=== PATIENT | female | born 1995 | race Caucasian/White ===

== ENCOUNTER 2020-06-23 08:09 | Emergency (ER) | payer OTHER, SELFPAY ==
[2020-06-23 08:17] VITALS: BP 134/87; PULSE 118; RESP 20; TEMP 36.9; O2SAT 99
--- NOTE | 2020-06-23 08:33 | ED.NAVMDI ---
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 Patient states she has a 2-day history of frontal headache followed by vomiting x2-3, then followed by definite diarrhea x1-2. No fever, loss of taste/smell, CP, cough, S OB, abdominal pain, sick contacts; denies FMH migraine, speech?visual changes, lateralizing weakness, numbness/weakness, photophobia/blurred vision, toothache. Symptoms are mild, worse eating ; she has had a prior cholecystectomy, and desires work release Related Data Home Medications Medication Instructions Recorded Confirmed Abilify 06/23/20 Celexa 06/23/20 Zofran 06/23/20 Allergies Allergy/AdvReac Type Severity Reaction Status Date / Time amoxicillin Allergy Mild RASH Unverified 12/08/17 16:12 Review of Systems Review of Systems: Narrative: General/Constitutional: No weight loss,fever Eyes: N0: Redness,discharge Ears/Nose/Throat: No: Epistaxis,ear discharge Respiratory: Denies: Hemoptysis Gastrointestinal: REPORTS vomiting, no bleeding-rectal Skin: No Lumps, eruption Neurologic: No Focal Weakness,Sz Hematologic: Denies: Petechiae/Purpura Psychiatric: No: Suicida ideationl All Other Systems: Reviewed and Negative [facility] Comments At time of signature, agree with nursing past medical, surgical, social and family history. There is no relevant family history pertinent to the presenting complaint Exam Narrative: Exam Narrative: General Appearance: Obese/overweight l appearing, connjunctiva clear Ears: External ear normal Nose: Normal nose Mouth/Throat: Normal appearing, Normal lips Supple Respiratory: Airway patent, No respiratory distress Cardiovascular: No JVD Abdomen: Soft, Non-tender, No massess, No organomegaly (no rebound/ surgical signs), Hyperactive bowel sounds Musculoskeletal: Full ROM Skin: Warm, Dry Neurological: A&O x3, Normal affect Course Vital Signs Vital signs: Vital Signs Temperature 98.5 F 06/23/20 08:17 Pulse Rate 118 H 06/23/20 08:17 Respiratory Rate 20 06/23/20 08:17 Blood Pressure 134/87 06/23/20 08:17 Pulse Oximetry 99 06/23/20 08:17 Temperature 98.5 F 06/23/20 08:17 Pulse Rate 118 H 06/23/20 08:17 Respiratory Rate 20 06/23/20 08:17 Blood Pressure 134/87 06/23/20 08:17 Pulse Oximetry 99 06/23/20 08:17 Discharge Plan Discharge Clinical Impression: Vomiting and diarrhea Patient Disposition: Home, Self-Care Condition: Stable Instructions: Acute Headache (ED), Acute Nausea and Vomiting (ED) Additional Instructions: Advised to go to higher-level care facility to higher level testing / scanning if not improved -- because for early diagnosis of serious problems {dehydration, HERNADEZ complications,etc), clear specific symptoms do not develope until later Return if worsens per handout Prescriptions: New ondansetron HCl [Zofran] 4 mg tablet 4 mg PO DAILY 1 Days Qty: 10 RF: 0 [id number] [Fioricet] 50-300-40 mg capsule 1 cap PO BID PRN (Reason: pain) Qty: 10 RF: 0 No Action Abilify RF: 0 Celexa RF: 0 Zofran RF: 0 Follow-up/Referrals: UNKNOWN,DOCTOR [Primary Care Provider] - Stand Alone Forms: Work/School Release IP
[2020-06-23] MEDS: KETOROLAC (*BKC) 60 MG/2 ML VIAL IM (08:44)
[2020-06-23] MEDS: ONDANSETRON HCL ODT 4 MG TABLET PO (08:45)
== END 2020-06-23 09:32 | disposition home or self-care (01) ==
PROVIDERS: Emergency Provider Emergency Medicine
DX: R11.10 Vomiting, unspecified (principal); R19.7 Diarrhea, unspecified; Z20.828 Contact with and (suspected) exposure to other viral communicable diseases
CPT/HCPCS: 96372; 99213; A9270; G0463; J1885

== ENCOUNTER 2020-06-23 08:55 | Outpatient (NON) | payer OTHER, SELFPAY ==
[2020-06-24 00:44] LABS: SARS-CoV-2 RNA PCR Negative
== END 2020-06-23 08:56 ==
LOC: ANHCOVIDDT 08:56
PROVIDERS: Visit Provider Emergency Medicine
DX: R11.10 Vomiting, unspecified (principal); Z20.828 Contact with and (suspected) exposure to other viral communicable diseases
CPT/HCPCS: 87635; C9803; U0003

== ENCOUNTER 2021-05-20 00:43 | Emergency (ER) | payer BC, SELFPAY ==
[2021-05-20 00:48] VITALS: BP 152/106; PULSE 115; RESP 24; TEMP 36.9; O2SAT 96
--- NOTE | 2021-05-20 00:49 | ECG_ITS ---
Measurements Intervals [place] Rate: 110 P: 40 WV: 148 QRS: 27 QRSD: 93 T: 1 QT: 341 QTc: 462 Interpretive Statements SINUS TACHYCARDIA DELAYED PRECORDIAL R/S TRANSITION BORDERLINE T WAVE ABNORMALITY- INFERIOR LEADS BASELINE ARTIFACT- I, II, III, AVR, V1-V6 ABNORMAL ECG Electronically Signed On 05-20-2021 6:27:16 PROFESSOR OF COMMUNICATION AND WRITING by Arturo Ross D.O.
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
--- NOTE | 2021-05-20 01:11 | PC.NURSE ---
Poison control called
--- NOTE | 2021-05-20 01:20 | PC.NURSE ---
Rn spoke with Xiomara at Poison control. Abilify max dose is 210mg, expect sedation, tachycardia, and hypotension with a peak of 3-5hrs. Celexa max dose of 150mg with possible agitation but should tolerate well. if agitation occurs, Benzos will help. mixing of celexa and abilify should not be a problem.
[2021-05-20 01:30] VITALS: RESP 20
[2021-05-20 01:41] LABS: Basophils Absolute Auto 0.1 K/mm3 (0.0-0.1); Basophils Percent Auto 0.6 % (0.2-1.2); Eosinophils Absolute Auto 0.1 K/mm3 (0-0.3); Eosinophils Percent Auto 1.5 % (0-4.4); Hematocrit 41.6 % (37.0-47.0); Hemoglobin 14.5 g/dL (12.0-15.0); Immature Granulocyte Absolute 0.03 K/mm3 (0.00-0.031); Immature Granulocyte Percent A 0.4 % (0-0.5); Lymphocytes Absolute Auto 2.09 K/mm3 (0.9-3.2); Lymphocytes Percent Auto 26.7 % (18.3-44.2); Mean Corpuscular HGB Conc 34.9 g/dl (32-36); Mean Corpuscular Hemoglobin 34.5 pg (26-34); Mean Platelet Volume 10.3 fl (7.4-10.4); Monocytes Absolute Auto 0.4 K/mm3 (0.1-0.6); Monocytes Percent Auto 5.5 % (2.6-8.5); Neutrophils Absolute Auto 5.1 K/mm3 (1.3-6.7); Neutrophils Percent Auto 65.3 % (45.5-73.1); Platelet Count Result 207 k/mm3 (150-375); Red Cell Distribution Width 13.4 % (11.5-14.5); White Blood Count 7.8 K/mm3 (4.5-10.0)
[2021-05-20 01:51] LABS: Acetaminophen < 10 ug/mL (10-30); Ethanol 38 mg/dL (<10); Salicylate < 1.0 mg/dL (2-20)
[2021-05-20 01:53] LABS: Alanine Aminotransferase 28 U/L (4-35); Albumin Level 4.1 g/dL (3.5-5.1); Alkaline Phosphatase 70 U/L (38-126); Anion Gap 11 mmol/L (8-16); Aspartate Amino Transferase 27 U/L (14-36); Bilirubin,Total 0.4 mg/dL (0.2-1.3); Blood Urea Nitrogen 6 mg/dL (7-17); Carbon Dioxide 23 mmol/L (22-30); Chloride 108 mmol/L (98-107); Estimated CRCL calculation 131 ml/min; Estimated Glomerular Filt Rate > 60; Glucose 123 mg/dL (65-110); Potassium 4.1 mmol/L (3.4-5.0); Sodium 142 mmol/L (137-145)
[2021-05-20 02:02] LABS: Add Urine Microscopic? NO; Appearance Urine Clear (Clear); Bilirubin Urine Negative (Negative); Blood Urine Negative (Negative); Color Urine Yellow (Yellow); Glucose Urine UA Negative (Negative); Ketones Urine Negative (Negative); Leukocyte Esterase Ur Negative LEU/UL (Negative); Nitrate Urine Negative (Negative); Protein Urine Negative (Negative); Urobilinogen Urine Negative mg/dL (<2.0)
[2021-05-20 02:23] LABS: Amphetamine Screen Urine Negative (Negative); Barbiturate Screen Urine Negative (Negative); Benzodiazepines Screen Urine Negative (Negative); Cannabinoid Screen Urine Positive (Negative); Cocaine Screen Urine Negative (Negative); Methadone Screen Urine Negative (Negative); Opiate Screen Urine Negative (Negative); Phencyclidine Screen Urine Negative (Negative)
[2021-05-20 03:20] VITALS: BP 146/83; PULSE 101; RESP 20; O2SAT 98
--- NOTE | 2021-05-20 05:32 | PC.NURSE ---
Interview completed. Pt escorted back to ED Room 3.
[2021-05-20 05:37] VITALS: BP 157/99; PULSE 100; RESP 14; O2SAT 98
--- NOTE | 2021-05-20 05:40 | PC.NURSE ---
case closed per MARLEE Solano at [place] poison control.
== END 2021-05-20 06:20 | disposition home or self-care (01) ==
PROVIDERS: Emergency Provider Emergency Medicine
DX: F32.A Depression, unspecified (principal); T43.221A Poisoning by selective serotonin reuptake inhibitors, accidental (unintentional), initial encounter; T43.591A Poisoning by other antipsychotics and neuroleptics, accidental (unintentional), initial encounter
CPT/HCPCS: 36415; 80053; 80307; 81003; 81025; 84443; 85025; 93005; 99284